=== PATIENT | female | born 1990 | race Caucasian/White ===

== ENCOUNTER 2017-07-27 20:09 | Emergency (ER) | payer BC ==
[2017-07-27 20:15] VITALS: BP 128/68; PULSE 73; RESP 16; TEMP 98.2; O2SAT 94
--- NOTE | 2017-07-27 20:53 | EDPHY ---
H & P Stated Complaint: felt light headed earlier, from out of town - Personal History LMP (Females 10-55): Now Current Tetanus/Diphtheria Vaccine: Yes Current Tetanus Diphtheria and Acellular Pertussis (TDAP): Yes - Medical/Surgical History Hx Asthma: No Hx Chronic Respiratory Disease: No Hx Diabetes: No Hx Cardiac Disease: No Hx Renal Disease: No Hx Cirrhosis: No Hx Alcoholism: No Hx HIV/AIDS: No Hx Splenectomy or Spleen Trauma: No Other PMH: denies - Social History Smoking Status: Never smoked Time Seen by Provider: 07/27/17 20:38 HPI/ROS: CHIEF COMPLAINT: Possible altitude related illness HISTORY OF PRESENT ILLNESS: 26 year old female visiting from [place], [place], arrived 2 days ago and went directly to [facility] where she planned on backpacking in camping at significant elevation. Last evening she started to notice that she was feeling lightheaded and short of breath at these elevations, slept in her car and this morning started driving toward [place] but continued complaining of lightheadedness, dyspnea as well as nausea. She subsequently went to the fire department in [place] and she was transported via ambulance. States that upon coming to lower elevation she is now asymptomatic and she currently is denying chest pain, dyspnea, headache, dizziness, lightheadedness, syncope, near syncope, abdominal pain. She would like to be discharged. Denies history of illicit drug use including cocaine use. No Cigarette use. No history of exogenous estrogen use. No history of immobilization, trauma. No history of malignancy. No family history of coagulopathic disorder. PRIMARY CARE PROVIDER:in L[place] REVIEW OF SYSTEMS: A ten point review of systems was performed and is negative with the exception of the items mentioned in the HPI PAST MEDICAL & SURGICAL HISTORY: No pertinent medical or surgical history SOCIAL HISTORY: Nonsmoker. Drug use PHYSICAL EXAM (Prior to examination, patient consented to physical exam, hands were washed and my usual and customary physical exam procedures followed) 1) GENERAL: Well-developed, well-nourished, alert and oriented. Appears to be in no acute distress. 2) HEAD: Normocephalic, atraumatic 3) HEENT: Pupils equal, round, reactive to light bilaterally. Sclera anicteric. Nasopharynx, oropharynx, clear, no lesions. Ears bilaterally with normal tympanic membranes. 4) NECK: Full range of motion, no meningeal signs. 5) LUNGS: Clear auscultation bilaterally, no wheezes, no rhonchi, no retractions. 6) HEART: Regular rate and rhythm, no murmur, no heave, no gallop. 7) ABDOMEN: No guarding, no rebound, no focal tenderness, negative McBurney's, negative Moctezuma's, negative Rovsing's, negative peritoneal sign, 8) MUSCULOSKELETAL: Moving all extremities, no focal areas of tenderness, no obvious trauma. No peripheral edema or discoloration. 9) BACK: No CVA tenderness, no midline vertebral tenderness, no fluctuance, no step-off, no obvious trauma, no visual or palpable abnormality. 10) SKIN: No rash, no petechiae. 11) Psychiatric: Patient is oriented X 3, there is no agitation. DIFFERENTIAL DIAGNOSIS: in no particular include but limited to pulmonary embolus, acute mountain sickness, high altitude pulmonary edema (Ambreen Sommers) Constitutional: Initial Vital Signs Temperature (C) 36.8 C 07/27/17 20:12 Heart Rate 73 07/27/17 20:12 Respiratory Rate 16 07/27/17 20:12 Blood Pressure 128/68 H 07/27/17 20:12 O2 Sat (%) 94 07/27/17 20:12 O2 Delivery Mode Room Air Allergies/Adverse Reactions: No Known Allergies Allergy (Unverified 07/27/17 20:11) Home Medications: Medication Instructions Recorded NK [No Known Home Meds] 07/27/17 Medical Decision Making ED Course/Re-evaluation: This patient appears well, is asymptomatic. Doubt PE in the presence of negative perc, negative Wells score, not tachycardic, not tachypneic, low risk. States that she is feeling "100% better" after descending from [place]. No further intervention at this time. Recommend she not ascend to higher elevation. She has findings pain next few days in [place] at a conference. Given usual and customary altitude precautions and instructions (mAbreen Sommers ) The patient was evaluated and managed by the physician anesthetic assistant. I have reviewed this chart and I agree with the findings and plan of care as documented , as indicated by my signature. I am the secondary supervising physician. ( Shayy Bello) Departure - Departure Disposition: Home, Routine, Self-Care Clinical Impression: Acute mountain sickness Condition: Good Instructions: Mountain Sickness (ED) Additional Instructions: Do not go to any higher altitude than [place]. If you develop shortness of breath, chest pain, or any other symptoms seek immediate medical attention Referrals: Follow-up, with your primary care provider in 5-7 days [Other] - As per Instructions
== END 2017-07-27 22:06 | disposition home or self-care (01) ==
DX: T70.29XA Other effects of high altitude, initial encounter (principal)